=== PATIENT | male | born 1970 | race Caucasian/White ===

== ENCOUNTER 2021-05-29 17:03 | Emergency (ER) | payer MEDICAID ==
[~2021-05-29] VITALS: Ht 167.6 cm; Wt 72.6 kg
[2021-05-29] MEDS ORDERED: DEPAKOTE DR500 MG PO ×2 (17:32→21:14)
== END 2021-05-29 21:18 | disposition home or self-care (01) ==
LOC: ED 17:03
DX: G40.909 Epilepsy, unspecified, not intractable, without status epilepticus (principal); Z76.0 Encounter for issue of repeat prescription

== ENCOUNTER → 2024-12-06 | Outpatient (CLI) | payer MEDICAID ==
[~2024-12-06] MED LIST: DEPAKOTE DR500 MG PO
[2024-12-06 16:44] LABS: HEMATOCRIT 45.5 % (42.0-52.0); MEAN CELL VOLUME 96.2 fl (80.0-94.0); MEAN CORPUSCULAR HGB 31.5 pg (27.0-31.0); MEAN CORPUSCULAR HGB CONC 32.7 g/dl (33.0-37.0); MEAN PLATELET VOLUME 9.1 fl (9.6-12.3); RED BLOOD COUNT 4.73 10*6/uL (4.50-5.90); RED CELL DISTRI WIDTH 12.5 % (0-14.5); WHITE BLOOD COUNT 9.8 10*3/uL (4.8-10.8)
[2024-12-06 17:09] LABS: ALKALINE PHOSPHATASE 72 U/L (46-116); BUN 9 mg/dl (9-23); CHLORIDE 102 mmol/L (98-107); CHOLESTEROL 208 mg/dL (<200); CPK 52 U/L (34-171); FREE T4 1.08 ng/dl (0.89-1.76); LDL CHOLESTEROL 135 mg/dL (9-159); POTASSIUM 4.1 mmol/L (3.4-5.1); SGPT/ALT 12 U/L (5-49); TOTAL PROTEIN 7.7 gm/dL (6.0-8.0); TRIGLYCERIDES 180 mg/dl (<150); VALPROIC ACID (DEPAKENE) 89.9 ug/ml (50-100); VITAMIN D, 25-HYDROXY 16.8 ng/mL (30-100)
== END | disposition home or self-care (01) ==
LOC: LAB 16:24
PROVIDERS: ATTEND Family Medicine
DX: Z12.5 Encounter for screening for malignant neoplasm of prostate (principal); E55.9 Vitamin D deficiency, unspecified; R53.83 Other fatigue; I10 Essential (primary) hypertension; Z51.81 Encounter for therapeutic drug level monitoring